=== PATIENT | male | born 1960 | race Caucasian/White ===

== ENCOUNTER 2018-04-20 02:47 | Emergency (ER) | payer MEDICARE ==
[~2018-04-20] VITALS: Ht 170.2 cm; Wt 111.4 kg
[~2018-04-20 02:47] MED LIST: GLIP5TAB11 PO; INSU100C4 SQ; METF-961 PO; VALS80TA2 PO
[2018-04-20] MEDS ORDERED: METF-960 PO (03:07)
[2018-04-20] MEDS ORDERED: VALS1TAB79 PO (03:07)
[2018-04-20] MEDS ORDERED: ASPI81 PO (03:07)
[2018-04-20] MEDS ORDERED: AMLO-511 PO (03:07)
[2018-04-20] MEDS ORDERED: CARV12 PO (03:07)
[2018-04-20] MEDS ORDERED: ATOR40TA28 PO (03:07)
[2018-04-20] MEDS ORDERED: ACAR50TA11 PO (03:07)
[2018-04-20] MEDS ORDERED: INSLAN SQ (03:07)
[2018-04-20] MEDS ORDERED: INSU100V SQ (03:07)
[2018-04-20 03:10] LABS: GLUCOSE,POINT OF CARE 163 MG/DL (70-110)
[2018-04-20] MEDS: LIDOCAINE 2% 5 ML JELLY TP ONE (04:28)
[2018-04-20 05:06] VITALS: BP 139/75
== END 2018-04-20 05:11 | disposition home or self-care (01) ==
LOC: EMS 02:47
DX: T16.2XXA Foreign body in left ear, initial encounter (principal); E78.00 Pure hypercholesterolemia, unspecified; I10 Essential (primary) hypertension; E11.9 Type 2 diabetes mellitus without complications; Z79.4 Long term (current) use of insulin; Z79.84 Long term (current) use of oral hypoglycemic drugs; Z79.82 Long term (current) use of aspirin
CPT/HCPCS: 69200